=== PATIENT | male | born 1955 | race Caucasian/White ===

== ENCOUNTER → 2021-06-04 | Outpatient (CLI) | payer OTHER ==
[~2021-06-04] MED LIST: GLUCOPHAGE500 MG PO; HYDROCHLOROTHIA25 MG PO; NORVASC2.5 MG PO; PRAVACHOL40 MG PO; TENORMIN 50 MG50 MG PO; ZESTRIL40 MG PO; ZYRTEC10 MG PO
== END ==
LOC: CT 06:57
DX: K11.8 Other diseases of salivary glands (principal); E04.1 Nontoxic single thyroid nodule; Z88.0 Allergy status to penicillin
CPT/HCPCS: 36415; 70491; 82565; Q9967